=== PATIENT | male | born 1955 | race Caucasian/White ===

== ENCOUNTER 2022-12-30 17:19 | Inpatient (IN) | payer OTHER ==
[~2022-12-30] VITALS: Ht 160 cm; Wt 65.8 kg
[~2022-12-30 17:19] MED LIST: ASPI81EC PO; POTCHL20ER PO
[2022-12-30 18:06] LABS: BASOPHILS ABSOLUTE AUTO 0.02 K/mm3 (0.00-0.23); BASOPHILS PERCENT AUTO 0 % (0-2); EOSINOPHILS ABSOLUTE AUTO 0.05 K/mm3 (0.00-0.68); EOSINOPHILS PERCENT AUTO 1 % (0-6); Hematocrit 46.9 % (37.0-53.0); Hemoglobin 15.2 g/dL (13.5-17.5); IMMATURE GRAN ABSOLUTE AUTO 0.01 K/mm3 (0.00-0.10); IMMATURE GRAN PERCENT AUTO 0 % (0-1); LYMPHOCYTES ABSOLUTE AUTO 1.76 K/mm3 (0.84-5.20); LYMPHOCYTES PERCENT AUTO 27 % (21-46); MONOCYTES ABSOLUTE AUTO 0.74 K/mm3 (0.16-1.47); MONOCYTES PERCENT AUTO 11 % (4-13); Mean Corpuscular HGB 31.2 pg (26.0-34.0); Mean Corpuscular HGB Conc 32.4 g/dL (31.5-36.5); Mean Corpuscular Volume 96 fL (80-100); Mean Platelet Volume 11.6 fL (9.1-12.4); NEUTROPHILS ABSOLUTE AUTO 4.03 K/mm3 (1.96-9.15); NEUTROPHILS PERCENT AUTO 61 % (41-73); Platelet Count 139 K/mm3 (150-400); RDW Coefficient Variation 15.9 % (11.7-14.2); RDW Standard Deviation 56.6 fL (35.1-46.3); Red Blood Cell Count 4.87 M/mm3 (4.30-5.90); White Blood Cell Count 6.61 K/mm3 (4.00-11.30)
[2022-12-30 18:42] LABS: Albumin, Blood 3.2 g/dL (3.4-5.0); Albumin/Globulin Ratio 0.9 (0.8-1.8); Bilirubin, Direct 0.4 mg/dL (0.0-0.3); Bilirubin, Indirect 0.6 mg/dL (0.1-0.7); Bun/Creatinine Ratio 39.8 (12.0-20.0); Calcium, Blood 8.9 mg/dL (8.5-10.1); Creatinine, Blood 0.75 mg/dL (0.60-1.20); Globulin, Blood 3.4 g/dL (2.2-4.0); Potassium, Blood 3.8 mmol/L (3.5-5.5); Total Protein, Blood 6.6 g/dL (6.4-8.2)
[2022-12-30 19:54] LABS: International Normalized Ratio 1.18; Prothrombin Time Results 12.3 Sec (9.7-11.5)
[2022-12-30 22:49] LABS: Source, Urine Clean Catch
[2022-12-30 23:00] LABS: Appearance, Urine Clear (Clear); Bilirubin, Urine Neg (Neg); Blood, Urine Neg (Neg); Glucose Qualitative, Urine Neg (Neg); Ketones, Urine Neg (Neg); Leukocyte Esterase, Urine Neg (Neg); Nitrite, Urine Neg (Neg); Protein, Urine Neg (Neg); Specific Gravity, Urine 1.015 (1.003-1.022); Urobilinogen, Urine NORM (Normal)
[2022-12-30 23:06] LABS: Color, Urine Pale Yellow (P-Yellow)
[2022-12-30] MEDS ORDERED: Deltasone 10 mg10 MG PO (23:10)
[2022-12-30] MEDS ORDERED: Ventolin/Prove6.7 GM INH (23:10)
[2022-12-31] VITALS (19 sets, daily range): BP systolic 88–152; BP diastolic 69–109
--- NOTE | 2022-12-31 03:45 | NUR ---
BLOOD NOTED IN MINER CATHETER TUBING. DR. JUNIOR WAS IN ROOM AND MADE AWARE. ALSO TOLD DR. BARROS PATIENT REPORTS PAIN AND LEAKING AROUND MINER SITE, PRESSURE RELATED. VERBAL ORDERS GIVEN FLOMAX 0.4 MG DAILY AND TOLD TO MONITOR BLEEDING FOR NOW. MAY START BLADDER IRRIGATION LATER THIS MORNING IF BLOOD PERSISTS. WILL COLLECT URINALYSIS IF NOT COLLECTED POST MINER PLACEMENT IN ED.
[2022-12-31 04:39] LABS: BASOPHILS ABSOLUTE AUTO 0.04 K/mm3 (0.00-0.23); BASOPHILS PERCENT AUTO 1 % (0-2); EOSINOPHILS ABSOLUTE AUTO 0.05 K/mm3 (0.00-0.68); EOSINOPHILS PERCENT AUTO 1 % (0-6); Hematocrit 47.1 % (37.0-53.0); Hemoglobin 15.2 g/dL (13.5-17.5); IMMATURE GRAN ABSOLUTE AUTO 0.01 K/mm3 (0.00-0.10); IMMATURE GRAN PERCENT AUTO 0 % (0-1); LYMPHOCYTES PERCENT AUTO 30 % (21-46); MONOCYTES ABSOLUTE AUTO 0.62 K/mm3 (0.16-1.47); MONOCYTES PERCENT AUTO 10 % (4-13); Mean Corpuscular HGB 30.7 pg (26.0-34.0); Mean Corpuscular HGB Conc 32.3 g/dL (31.5-36.5); Mean Corpuscular Volume 95 fL (80-100); NEUTROPHILS ABSOLUTE AUTO 3.52 K/mm3 (1.96-9.15); NEUTROPHILS PERCENT AUTO 58 % (41-73); Platelet Count 143 K/mm3 (150-400); RDW Coefficient Variation 15.9 % (11.7-14.2); RDW Standard Deviation 55.8 fL (35.1-46.3); Red Blood Cell Count 4.95 M/mm3 (4.30-5.90); White Blood Cell Count 6.04 K/mm3 (4.00-11.30)
[2022-12-31 05:30] LABS: Albumin, Blood 2.9 g/dL (3.4-5.0); Albumin/Globulin Ratio 0.8 (0.8-1.8); Bilirubin, Total 1.2 mg/dL (0.1-1.0); Bun/Creatinine Ratio 41.3 (12.0-20.0); Calcium, Blood 8.3 mg/dL (8.5-10.1); Creatinine, Blood 0.61 mg/dL (0.60-1.20); Globulin, Blood 3.5 g/dL (2.2-4.0); Potassium, Blood 3.8 mmol/L (3.5-5.5); Total Protein, Blood 6.4 g/dL (6.4-8.2)
--- NOTE | 2022-12-31 07:48 | NUR ---
SHIFT SUMMARY ADMITTED FROM ED. A/OX4. [place], USUALLY REQUIRES HEAERING AIDS BUT LOST ONE, WEARS NONE. GLASSES AT BEDSIDE. SLIGHT JAUNDICE, ABDOMINAL SWELLING, BILATERAL LE EDEMA. TACHYCARDIC, AUDIBLE EXPIRATORY WHEEZE WITHOUT AUSCULTATION. PENDING AN ECHO, PARACENTESIS, THORACENTESIS TODAY. MINER PLACED IN ED, WAS LEAKING AROUND PENIS WITH SOME PAIN. FLUSHES WELL. BALLOON INTACT, ADDED AN EXTRA 2ML TO THE 10 ML IN BALLOON. PATIENT STATES HE HAS LOST A MINER IN THE PAST, MAY NEED TO INCREASE ICELANDIC TUBE. BLOOD NOTED IN TUBING AND HAS INCREASED, PASSED ON TO DAY SHIFT REPORT THAT DR. HICKEY HAD BEEN BY AND TOLD TO MONITOR FOR INCREASED BLEEDING WITH POSSIBLE BLADDER IRRIGATION INITIATION. CURRENT EVERY DAY SMOKER, PATIENT REFUSED NICOTINE PATCH WHEN OFFERED. ABLE TO MAKE NEEDS KNOWN. 1 PERSON [facility] TO BATHROOM. BED LOCKED IN LOW POSITION.
[2022-12-31 13:59] LABS: Albumin, Body Fluid 0.7 g/dL
[2022-12-31 14:06] LABS: Automated BF WBC Count 0.237 K/mm3 (0-999)
--- NOTE | 2022-12-31 14:10 | NUR ---
PARACENTESIS CANCELLED- PT HAD PARA AND THORACENTESIS ORDERED, GIVEN THE RESULT OF HIS ECHOCARDIOGRAM PARACENTESIS WAS CANCELLED AND CT CHEST WAS ORDERED. PT WENT FOR THORACENTESIS AND HAD 1L REMOVED FROM THE CHEST. AUDIBLE WHEEZE IS MUCH LESS AUDIBLE AT THIS TIME. SPECIMEN SENT TO THE LAB FOR CYTOLOGY. CARDIOLOGY WAS CONSULTED. PT HAS MADE A STATEMENT THAT HE IS NOT WILLING TO GO THROUGH THE SAME VALVE REPLACEMENT SURGERY HE HAD 12 YEARS AGO. UNCERTAIN WHAT THE PLAN IS MOVING FORWARD. FAMILY REQUESTED PALLIATIVE CARE CONSULT FOR THE PURPOSE OF ADVANCED DIRECTIVE AT THIS TIME. PALLIATIVE CARE UNAVAILABLE TODAY D/T LALIT. WILL PLACE CONSULT
[2022-12-31 14:12] LABS: Lactate Dehydrogenase, Body Fl 85 U/L
[2022-12-31 14:13] LABS: Protein, Body Fluid 1.2 g/dL
[2022-12-31 14:14] LABS: Body Fluid WBC Count 237 /mm3 (0-999)
[2022-12-31 14:24] LABS: Appearance, Body Fluid Clear (Clear); Color, Body Fluid Yellow (None-Yellow); RBC Count, Body Fluid 365 /mm3 (0-0); pH, Body Fluid 8.6
[2022-12-31 15:03] LABS: Total Cell Count, Body Fluid 100
--- NOTE | 2022-12-31 15:17 | NUR ---
CALLED DR PLAZA- PT IS IN BED VISITING WITH THE WALLPAPER HANGER AND SEVERAL TIMES WAS IN NOTABLE PAIN. PT STATES THE PAIN IS IN THE CATHETER SITE. BLADDER SCAN ATTEMPTED BUT UNABLE TO DETERMINE WITH CERTANITY IF THERE IS URINE BEING RETAINED IN THE BLADDER, D/T ASCITES. CALLED DR PLAZA, D/T PT CURRENT ACUTE ISSUES URINARY WORKUP WILL NOT BE PERSUED. RECIEVED ORDER FOR PO PYRIDIUM, FOR URINARY PAIN RELIEF Q6 PRN. PHARMACY CHANGED DOSE FREQUENCY TO Q12 D/T PT RENAL FUNCTION.
--- NOTE | 2022-12-31 18:30 | NUR ---
NO PARAMETERS FOR IV LASIX- SPOKE TO CARDIOLOGY ABOUT BP PARAMETERS FOR THE PT TO RECIEVE IV LASIX. HE STATED HE WANTS THE MED TO BE GIVEN. BP 113/97 PRIOR TO LASIX, DR MARTINEZ AWARE OK TO GIVE 80MG IV LASIX. FOLLOW UP BP 101/86.
--- NOTE | 2022-12-31 19:40 | NUR ---
SHIFT SUMMARY- PT ALERT AND ORIENTED, BUT VERY [place]. PT OFTEN ONLY GETS HALF OF THE INFORMATION HE RECIEVES VERBALLY, SO HE APPEARS TO NOT UNDERSTAND. PT AND FAMILY HAVE HAD A LOT OF INPUT TODAY. 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 CARDIOLOGY CAME TO SEE THE PT AND IS GOING TO TAKE THE PT IN FOR CARDIAC CATH TOMORROW. PT TO BE NPO AT 0100. IV LASIX STARTED. MINER IN PLACE PATENT AND DRAINING YELLOW URINE. URINE WAS BLOODY EARLIER, AFTER THE IV LASIX THE PT HAD 1000ML OF URINE OUT WITH SOME SMALL CLOTS IN IT. PT FAMILY REQUESTED ASSISTANCE WITH ADVANCED DIRECTIVE, PALIATIVE CARE CONSULT PLACED FOR THAT PURPOSE. CT CHEST WAS COMPLETED, THORACENTESIS WAS COMPLETED 1L REMOVED. PT IN BED, CALL LIGHT IN REACH, BP STABLE POST IV LASIX.
--- NOTE | 2022-12-31 21:12 | NUR ---
REPORT FROM MARLON GARCIA, PATIENT TRANSFERRED FROM ROOM 305, TO ICU 5 AT 2034. WALKED FROM WC TO BED. PATIENT IS ALERT AND ORIENTED X4. 02 SATS 94% ON 2L VIA NC, DENIES SOB AT THIS TIME. HR ST 110-120s, BP STABLE, DENIES CP/PRESSURE. ABD DISTENDED, PT HAS ASCITES. MINER IN PLACE APPEARS TO BE LEAKING, WILL CHANGE OUT IF NEEDED. URINE ORANGE WITH SMALL BLOOD CLOTS. PATIENT UPDATED HIS DUAGHTER OF HIS TRANSFER TO ICU. CALL LIGHT IN REACH.
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
[2023-01-01] VITALS (46 sets, daily range): BP systolic 71–141; BP diastolic 53–119
[2023-01-01 03:21] LABS: BASOPHILS ABSOLUTE AUTO 0.02 K/mm3 (0.00-0.23); BASOPHILS PERCENT AUTO 0 % (0-2); EOSINOPHILS ABSOLUTE AUTO 0.05 K/mm3 (0.00-0.68); EOSINOPHILS PERCENT AUTO 1 % (0-6); Hematocrit 45.6 % (37.0-53.0); Hemoglobin 15.1 g/dL (13.5-17.5); IMMATURE GRAN ABSOLUTE AUTO 0.02 K/mm3 (0.00-0.10); IMMATURE GRAN PERCENT AUTO 0 % (0-1); LYMPHOCYTES ABSOLUTE AUTO 1.69 K/mm3 (0.84-5.20); LYMPHOCYTES PERCENT AUTO 23 % (21-46); MONOCYTES ABSOLUTE AUTO 0.81 K/mm3 (0.16-1.47); MONOCYTES PERCENT AUTO 11 % (4-13); Mean Corpuscular HGB 31.5 pg (26.0-34.0); Mean Corpuscular HGB Conc 33.1 g/dL (31.5-36.5); Mean Corpuscular Volume 95 fL (80-100); Mean Platelet Volume 11.9 fL (9.1-12.4); NEUTROPHILS ABSOLUTE AUTO 4.84 K/mm3 (1.96-9.15); NEUTROPHILS PERCENT AUTO 65 % (41-73); Platelet Count 153 K/mm3 (150-400); RDW Coefficient Variation 15.8 % (11.7-14.2); RDW Standard Deviation 55.2 fL (35.1-46.3); White Blood Cell Count 7.43 K/mm3 (4.00-11.30)
[2023-01-01 03:43] LABS: Albumin/Globulin Ratio 0.8 (0.8-1.8); Bilirubin, Total 1.1 mg/dL (0.1-1.0); Bun/Creatinine Ratio 32.8 (12.0-20.0); Calcium, Blood 8.7 mg/dL (8.5-10.1); Creatinine, Blood 0.7 mg/dL (0.60-1.20); Globulin, Blood 3.6 g/dL (2.2-4.0); Potassium, Blood 3.9 mmol/L (3.5-5.5); Total Protein, Blood 6.6 g/dL (6.4-8.2)
--- NOTE | 2023-01-01 05:34 | NUR ---
SHIFT SUMMARY PATIENT REMAINS ALERT AND ORIENTED X4. PATIENT HAVING APNIEC PERIODS THROUGH THE NIGHT, 5L NC 02 SATS 95%, LS COARSE. HR ST 115, BP STABLE. DENIES CP/PRESSURE. ABD FIRM AND DISTENDED. MINER PATENT AND DRAINING TO GRAVITY, URINE IS ORANGE WITH SMALL AMOUNT OF BLOOD CLOTS. PATIENT DENIES PAIN. SLEPT MOST THE NIGHT. CALL LIGHT IN REACH.
--- NOTE | 2023-01-01 06:26 | NUR ---
TRANSFER NOTE THIS RN RECEIVED REPORT FROM DAT GARCIA IN THE ICU. PT TRANSFERRED TO PCU 11 AT 0615. PT AMBULATED TP PCU BED VIA 1P SBA ASSIST. BP STABLE. AFLUTTER WITH HR [address] GANG SUPERVISOR RITA. ON 5L VIA NC WITH SPO2 >90%. PT HAS BEEN NPO FOR ANGIO THIS AM. A&O X4. ABLE TO MAKE NEEDS KNOWN. BED IN LOWEST POSITION AND CALL LIGHT WITHIN REACH. THIS RN WILL REPORT TO AKIRA BOYKIN RN.
--- NOTE | 2023-01-01 09:08 | NUR ---
PT LEFT PCU FOR ANGIO AT 0800. PT A/OX4 AT THIOS TIME AND ON 2 L NC. PT TRANSFERED VIA HOSPITAL BED. NS RUNNING PER WANDA, FLUIDS STOPPED BY CURBER RN AT TIME OF TRANSFER, FLUIDS TRANSFERED WITH PT. PT CALLED DAUGHTER JUST BEFORE LEAVING FOR PROCEDURE FOR UPDATE.
--- NOTE | 2023-01-01 10:44 | NUR ---
PT ARRIVED FROM BOY'S ADVISER AT 1000 VIA HOSPITAL BED. PT ON 2L. RIGHT RADIAL SITE C/D/I AND WITHIOUT TENDERNESS OR HEMATOMA. PT INSTRUCTED NOT TO BEND RIGHT WRIST AND UPDATED ON THE FREQUENT VITALS AND ASSESSMENTS POST PROCEDURE. FAMILY PRESENT AT THIS TIME.
[2023-01-01 11:04] LABS: CHOL/HDL RATIO 5.5; Cholesterol 159 mg/dL (50-200); HDL Cholesterol 29 mg/dL (>39); Low Density Lipoprotein Chol 117 mg/dL (0-110); Triglycerides 63 mg/dL (30-160); Very Low Density Lipoprot Chol 12 mg/dL (6-32)
--- NOTE | 2023-01-01 11:18 | NUR ---
RIGHT RADIAL SITE C/D/I AND NO TNEDERENESS OR HEMATOMA NOTED. PT RESTING AT THIS TIME.
--- NOTE | 2023-01-01 11:52 | NUR ---
pt currenlty resting. right radial site c/d/i and no hematoma noted.
--- NOTE | 2023-01-01 13:33 | NUR ---
UPDATE AROUND 1300, PT BP NOTED TO BE GETTING SOFT. SEE CHARTS FOR VSS. PT RESTING AND ASYMPTOMATIC. SBP REACHED DOWN TO 77. MD NOTIFIED 1316 OF BP TREND. MD ORDERED THIS RN TO HOLD UPCOMING LASIX AND TO CONTINUE TO MONITOR BP. THIS RN INSTRUCTED TO NOTIFY MD AGAIN IF BP CONTINUE TO DECREASE.
--- NOTE | 2023-01-01 14:36 | NUR ---
TR BAND 2ML RELEASED AT 1225, 1230, 1300, AND 3ML AT 1400 TO FULLY RELEASE ML'S. SITE C/D/I.
--- NOTE | 2023-01-01 16:57 | NUR ---
SHIFT SUMMARY PT A/OX 3-4. PT ABLE TO EXPRESS NEEDS AND CALLS APPROPIATE. PT BP'S SOFT SINCE ARRIVING FROM ANGIOMD AND CLIPPING MARKER AWARE. OTHER VSS THROUGHOUT SHIFT WITH SATS IN THE 90'S ON 2L NC. NO REPORT OF CHEST PAIN/PRESSURE THROUGHOUT SHIFT. PT HAD ANGIO TODAY, NO INTERVENTION. RIGHT RADIAL SITE C/D/I. PT HAS MINER DRAINING TO GRAVITY. LASIX FREQUENCY CHANGE FROM BID TO DAILY PER CLIPPING MARKER. PT DAUGHTERS AT BESIDE DURING SHIFT AND UPDATED BY THIS RN.
--- NOTE | 2023-01-01 20:30 | NUR ---
ASSUMED PT CARE FROM RN ON DAYSHI. A&OX4, [place]. DENIES ANY CHEST PAIN/PRESSURE AT THIS TIME. BP'S SOFT WITH MAP LOW 60, INCREASES WHEN BP CUFF REPOSITION, MAP NOW IN 80'S, WILL MONITOR. DENIES DIZZIENESS, LIGHTHEADEDNESS. REPORTS BASLINE SOB. O2 SATS > 90% ON [address]PM[address] HR [address] IN LOW 100'S. ACCESS SITES ON RIGHT WRIST AND R ELBOW C/D/I. NO LEAKING, SWELLING, OR FIRMNESS NOTED. PT REMINDED OF PRECAUTIONS, STATES UNDERSANDING. MINER CATHETER IN PLACE, DRAINING TO GRAVITY WITHOUT DIFFICULTY. CALL LIGHT IN REACH. IN BED LOW POSITION.
[2023-01-02] VITALS (17 sets, daily range): BP systolic 92–123; BP diastolic 58–101
[2023-01-02 04:15] LABS: BASOPHILS ABSOLUTE AUTO 0.02 K/mm3 (0.00-0.23); BASOPHILS PERCENT AUTO 0 % (0-2); EOSINOPHILS ABSOLUTE AUTO 0.09 K/mm3 (0.00-0.68); EOSINOPHILS PERCENT AUTO 1 % (0-6); Hematocrit 42.9 % (37.0-53.0); IMMATURE GRAN ABSOLUTE AUTO 0.01 K/mm3 (0.00-0.10); IMMATURE GRAN PERCENT AUTO 0 % (0-1); LYMPHOCYTES ABSOLUTE AUTO 1.33 K/mm3 (0.84-5.20); LYMPHOCYTES PERCENT AUTO 20 % (21-46); MONOCYTES PERCENT AUTO 11 % (4-13); Mean Corpuscular HGB 31.3 pg (26.0-34.0); Mean Corpuscular HGB Conc 32.6 g/dL (31.5-36.5); Mean Corpuscular Volume 96 fL (80-100); Mean Platelet Volume 11.8 fL (9.1-12.4); NEUTROPHILS ABSOLUTE AUTO 4.45 K/mm3 (1.96-9.15); NEUTROPHILS PERCENT AUTO 67 % (41-73); Platelet Count 133 K/mm3 (150-400); RDW Coefficient Variation 15.9 % (11.7-14.2); RDW Standard Deviation 55.8 fL (35.1-46.3); Red Blood Cell Count 4.47 M/mm3 (4.30-5.90)
[2023-01-02 04:48] LABS: Bun/Creatinine Ratio 42.3 (12.0-20.0); Calcium, Blood 8.4 mg/dL (8.5-10.1); Creatinine, Blood 0.64 mg/dL (0.60-1.20); Magnesium, Blood 2.1 mg/dL (1.6-2.4)
--- NOTE | 2023-01-02 05:19 | NUR ---
SHIFT SUMMARY: NC FALLING OUT OF NOSE WHILE SLEEPING, DESATURATING INTO MID 80'S. NEBULIZER TREATMENT GIVEN X 1 DUE TO SATS NOT INCREASING WHEN REPLACED BACK ON O2. NOW SATTING LOW 90'S. WHEEZING HEARD THROUGHOUT LUNG CASTRO. CONTINUES TO REPORT BASELINE SOB. MINER CATHETER DRAINING TO GRAVITY, URINE ORAGNE WITH SCAN SEDIMENT. BP'S IMPROVING THROUGHOUT SHIFT. EVENING DOSE OF METROLOL MARY JO PER PERAMETERS, SEE EMAR. CALL LIGHT IN REACH. BED ALARM ON.
[2023-01-02] MEDS ORDERED: ATOR80 PO (11:15)
[2023-01-02] MEDS ORDERED: ELIQUIS5 M2 PO (11:15)
[2023-01-02] MEDS ORDERED: FURO40 PO (11:16)
[2023-01-02] MEDS ORDERED: METO50 PO (11:16)
[2023-01-02] MEDS ORDERED: NICO21TP TOP (11:16)
[2023-01-02] MEDS ORDERED: POTCHL20ER PO (11:17)
[2023-01-02] MEDS ORDERED: TAMS.4ER PO (11:27)
--- NOTE | 2023-01-02 13:17 | NUR ---
DISCHARGE UPDATE DISCHARGE PACKET GONE OVER WITH PT AND PT DAUGHTER AT 1250. PT DISCHARGED AT 1314 VIA WHEELCHAIR AND ON RA. DISCHARGE PACKET WITH DAUGHTER AT TIME OF DISCHARGE. SUPPLY TECH SUPPLIED PT WITH 30 SUPPLY OF ELLIQUIS CARD, CARD WITH PT DAUGHTER AT TIME OF DISCHARGE. PT ABLE TO TRANSFER SELF TO AND FROM WHEELCHAIR ON HIS OWN, TOLERATED WELL. PT PERSONAL BELONGINGS IN BAG AND WITH PT DAUGHTER AT TIME OF DISCHARGE.
--- NOTE | 2023-01-02 13:21 | NUR ---
5988 THIS RN CONTACTED [facility] TO GET PRICING OF ELIQUIS AND EQUIVALENT MEDS. MD NOTIFIED OF PRICING. MD INSTRUCTED THIS RN TO CONTINUE WITH DISCHARGE AND TO SEE IF THERE WAS ASSISTANCE FROM STRATIGRAPHER. STRATIGRAPHER CONTACTED BY SECURITY INVESTIGATOR. ELIQUIS 30 SUPPLY CARD PROVIDED TO COVER PHARMACY COST AND PROVIDED TO PT DAUGHTER.
== END 2023-01-02 13:18 | disposition home or self-care (01) | DRG 286 ==
LOC: ER 17:19 → PCU 17:20 → MEDS 17:20 → ER 17:20 → ICUE 17:20 → MEDS 17:20 → ICUE 17:20 → PCU 17:20 → MEDS 23:56 → ICUE 12-31 15:38 → MEDS 12-31 15:38 → ICUE 12-31 20:35 → MEDS 12-31 20:35 → ICUE 12-31 20:35 → PCU 01-01 06:12
PROVIDERS: Internal Medicine; Internal Medicine Cardiovascular Disease; Physician Assistant; Student in an Organized Health Care Education/Training Program; ADMIT Internal Medicine
PROC: 0W993ZZ Drainage of Right Pleural Cavity, Percutaneous Approach (ICD-10-PCS; 2022-12-31)
PROC: 4A023N8 Measurement of Cardiac Sampling and Pressure, Bilateral, Percutaneous Approach (ICD-10-PCS; principal; 2023-01-01)
PROC: B2111ZZ Fluoroscopy of Multiple Coronary Arteries using Low Osmolar Contrast (ICD-10-PCS; 2023-01-01)
PROC: 02HP32Z Insertion of Monitoring Device into Pulmonary Trunk, Percutaneous Approach (ICD-10-PCS; 2023-01-01)
PROC: 4A133B3 Monitoring of Arterial Pressure, Pulmonary, Percutaneous Approach (ICD-10-PCS; 2023-01-01)
PROC: 4A1239Z Monitoring of Cardiac Output, Percutaneous Approach (ICD-10-PCS; 2023-01-01)
DX: I50.812 Chronic right heart failure (principal); E43 Unspecified severe protein-calorie malnutrition; J96.01 Acute respiratory failure with hypoxia; I48.92 Unspecified atrial flutter; T82.857A Stenosis of other cardiac prosthetic devices, implants and grafts, initial encounter; J90 Pleural effusion, not elsewhere classified; I08.1 Rheumatic disorders of both mitral and tricuspid valves; K70.31 Alcoholic cirrhosis of liver with ascites; F10.21 Alcohol dependence, in remission; J44.9 Chronic obstructive pulmonary disease, unspecified; I25.10 Atherosclerotic heart disease of native coronary artery without angina pectoris; R33.9 Retention of urine, unspecified; I27.20 Pulmonary hypertension, unspecified; F17.210 Nicotine dependence, cigarettes, uncomplicated; Z68.25 Body mass index [BMI] 25.0-25.9, adult; Z88.2 Allergy status to sulfonamides
CPT/HCPCS: 32555; 36415; 51702; 51798; 71045; 71046; 71260; 74160; 76937; 80048; 80053; 80061; 80076; 81003; 82042; 82140; 83615; 83735; 83880; 83986; 84157; 84484; 85025; 85610; 87070; 87075; 87205; 88108; 88305; 88341; 88342; 89051; 93005; 93010; 93306; 93460; 94640; 94664; 94760; 94762; 96374-59; 96375; 99152; 99153; 99285-25; A9270; C1769; C1887; C1894; G0378; J0360; J1644; J1940; J2250; J3010; J7030; J7040; J7050; Q9967

== ENCOUNTER 2023-02-23 16:05 | Emergency (ER) | payer OTHER ==
[~2023-02-23] VITALS: Ht 165.1 cm; Wt 65.8 kg
[~2023-02-23 16:05] MED LIST changes: +ATOR80 PO; +Deltasone 10 mg10 MG PO; +ELIQUIS5 M2 PO; +FURO40 PO; +METO50 PO; +NICO21TP TOP; +TAMS.4ER PO; +Ventolin/Prove6.7 GM INH
[2023-02-23 16:54] LABS: BASOPHILS ABSOLUTE AUTO 0.03 K/mm3 (0.00-0.23); BASOPHILS PERCENT AUTO 0 % (0-2); EOSINOPHILS ABSOLUTE AUTO 0.07 K/mm3 (0.00-0.68); EOSINOPHILS PERCENT AUTO 1 % (0-6); Hematocrit 43.7 % (37.0-53.0); Hemoglobin 13.8 g/dL (13.5-17.5); IMMATURE GRAN ABSOLUTE AUTO 0.03 K/mm3 (0.00-0.10); IMMATURE GRAN PERCENT AUTO 0 % (0-1); LYMPHOCYTES ABSOLUTE AUTO 1.51 K/mm3 (0.84-5.20); LYMPHOCYTES PERCENT AUTO 22 % (21-46); MONOCYTES ABSOLUTE AUTO 0.94 K/mm3 (0.16-1.47); MONOCYTES PERCENT AUTO 14 % (4-13); Mean Corpuscular HGB 29.8 pg (26.0-34.0); Mean Corpuscular HGB Conc 31.6 g/dL (31.5-36.5); Mean Corpuscular Volume 94 fL (80-100); Mean Platelet Volume 10.8 fL (9.1-12.4); NEUTROPHILS PERCENT AUTO 63 % (41-73); Platelet Count 191 K/mm3 (150-400); RDW Coefficient Variation 16.5 % (11.7-14.2); RDW Standard Deviation 57.7 fL (35.1-46.3); Red Blood Cell Count 4.63 M/mm3 (4.30-5.90); White Blood Cell Count 6.88 K/mm3 (4.00-11.30)
[2023-02-23 17:09] LABS: International Normalized Ratio 1.16; Prothrombin Time Results 12.1 Sec (9.7-11.5)
[2023-02-23 17:41] LABS: Albumin/Globulin Ratio 0.8 (0.8-1.8); Bilirubin, Total 0.5 mg/dL (0.1-1.0); Bun/Creatinine Ratio 49.4 (12.0-20.0); Creatinine, Blood 0.59 mg/dL (0.60-1.20); Potassium, Blood 4.1 mmol/L (3.5-5.5)
[2023-02-23 22:34] VITALS: BP 132/99
== END 2023-02-23 22:34 | disposition home or self-care (01) ==
LOC: ER 16:05
PROVIDERS: Physician Assistant
DX: I50.9 Heart failure, unspecified (principal); K70.31 Alcoholic cirrhosis of liver with ascites; I48.91 Unspecified atrial fibrillation; I48.92 Unspecified atrial flutter; R06.00 Dyspnea, unspecified; F17.210 Nicotine dependence, cigarettes, uncomplicated; Z79.01 Long term (current) use of anticoagulants; Z79.899 Other long term (current) drug therapy; Z88.2 Allergy status to sulfonamides; Z95.2 Presence of prosthetic heart valve; Z91.148 Patient's other noncompliance with medication regimen for other reason
CPT/HCPCS: 71046; 80053; 83880; 84484; 85025; 85610; 93005; 93010; 99285-25

== ENCOUNTER 2023-03-05 12:15 | Inpatient (IN) | payer OTHER ==
[~2023-03-05] VITALS: Ht 172.7 cm; Wt 61.7 kg
[2023-03-05 12:50] LABS: BASOPHILS ABSOLUTE AUTO 0.04 K/mm3 (0.00-0.23); BASOPHILS PERCENT AUTO 1 % (0-2); EOSINOPHILS ABSOLUTE AUTO 0.08 K/mm3 (0.00-0.68); EOSINOPHILS PERCENT AUTO 1 % (0-6); Hematocrit 46.7 % (37.0-53.0); Hemoglobin 14.7 g/dL (13.5-17.5); IMMATURE GRAN ABSOLUTE AUTO 0.01 K/mm3 (0.00-0.10); IMMATURE GRAN PERCENT AUTO 0 % (0-1); LYMPHOCYTES ABSOLUTE AUTO 1.52 K/mm3 (0.84-5.20); LYMPHOCYTES PERCENT AUTO 23 % (21-46); MONOCYTES ABSOLUTE AUTO 0.83 K/mm3 (0.16-1.47); MONOCYTES PERCENT AUTO 13 % (4-13); Mean Corpuscular HGB 29.9 pg (26.0-34.0); Mean Corpuscular HGB Conc 31.5 g/dL (31.5-36.5); Mean Corpuscular Volume 95 fL (80-100); Mean Platelet Volume 10.5 fL (9.1-12.4); NEUTROPHILS ABSOLUTE AUTO 4.11 K/mm3 (1.96-9.15); NEUTROPHILS PERCENT AUTO 62 % (41-73); Platelet Count 190 K/mm3 (150-400); RDW Standard Deviation 58.7 fL (35.1-46.3); Red Blood Cell Count 4.92 M/mm3 (4.30-5.90); White Blood Cell Count 6.59 K/mm3 (4.00-11.30)
[2023-03-05 13:06] LABS: International Normalized Ratio 1.25
[2023-03-05 13:19] LABS: Albumin/Globulin Ratio 0.7 (0.8-1.8); Bilirubin, Total 0.8 mg/dL (0.1-1.0); Bun/Creatinine Ratio 44.1 (12.0-20.0); Calcium, Blood 8.7 mg/dL (8.5-10.1); Creatinine, Blood 0.61 mg/dL (0.60-1.20); Globulin, Blood 4.1 g/dL (2.2-4.0); Potassium, Blood 4.1 mmol/L (3.5-5.5); Total Protein, Blood 7.1 g/dL (6.4-8.2)
[2023-03-05] MEDS ORDERED: Albuterol 2.5 MG/3 ML VIAL INH ONE (16:00)
[2023-03-05] MEDS ORDERED: Nicotine 21 MG PATCH TOP ONE (16:00)
[2023-03-05] MEDS ORDERED: Albumin Human 50 ML IV ONE (17:20)
[2023-03-05] MEDS ORDERED: Magnesium Hydroxide Conc 10 ML UDC PO PRN (18:35)
[2023-03-05] MEDS ORDERED: FLU VACC QS2023-24(6MOS UP)/PF 60 MCG/0.5 ML SYRINGE IM SCH (18:35)
[2023-03-05] MEDS ORDERED: Albuterol HFA200 ACT/6.7 GM INH INH PRN (18:40)
[2023-03-05] MEDS ORDERED: PredniSONE 20 MG Tab PO SCH (19:00)
[2023-03-05 20:05] VITALS: BP 96/77
[2023-03-05] MEDS ORDERED: Metoprolol Tartrate 25 MG Tab PO SCH (21:00)
[2023-03-05] MEDS ORDERED: Apixaban 5 MG Tab PO SCH (21:00)
--- NOTE | 2023-03-05 22:16 | NUR ---
Pt refuses O2 Pt O2 saturation is 87-90%, he is refusing O2 at this time because he states the mask or NC smells and causes him nausea. Education provided.
[2023-03-06] VITALS (7 sets, daily range): BP systolic 95–122; BP diastolic 70–90
--- NOTE | 2023-03-06 06:10 | NUR ---
Shift Summary Pt arrived from the ED with dx of COPD. He had 6L of fluid removed from his abdomen in the ED via thoracentesis. He is a current everyday smoker, his lung sounds are coarse and wheezy t/o. He rcvd RT treatment and oral steriods. He has been SoB and desaturating down to 87% but refuses to wear O2 for the most part. He is AOx4 and steady on his feet, but 1 SBA d/t SoB and weakness. He has a poor living environment, he lives in a camp trailer and reportedly uses a bucket for a toilet. He is very hard of hearing, has hearing aids at home but he does not wear them. His systolic BP was below 100 last night so I held his metropolol. Pt states he is going to sneak out with his friend tomorrow to smoke, I advised that it is not allowed anywhere on [facility] [employer]. Pt does not have any lighters or cigaretts with him at this time, he thouroughly searched his own belongings. Offered nicotine repacement which he refused.
[2023-03-06] MEDS ORDERED: Furosemide 40 MG Tab PO SCH (09:00)
[2023-03-06] MEDS ORDERED: Spironolactone 50 MG Tab PO SCH (09:00)
[2023-03-06] MEDS ORDERED: Atorvastatin 10 MG Tab PO SCH (09:00)
[2023-03-06] MEDS ORDERED: Tamsulosin HCl 0.4 MG Cap PO SCH (09:00)
[2023-03-06] MEDS ORDERED: Nicotine 21 MG PATCH TOP SCH (14:55)
--- NOTE | 2023-03-06 15:57 | NUR ---
PATIENT BECAME UPSET WITH HIS TWO DAUGHTERS WHEN THEY TOLD HIM THAT HE COULD NOT GO OUTSIDE TO SMOKE. THE PATIENT AND HIS DAUGHTERS BEGAN YELLING AND THREATENING EACHOTHER WITH HAND GESTURES SUCH CLOSED FISTS AND MIDDLE FINGERS. THE DAUGHTERS WERE ASKED TO LEAVE BY THE RN. SECURITY WAS CALLED AT THE PATIENT'S REQUEST. THE PATIENT HAS BEEN NOTIFIED BY THIS RN THAT IF HE CHOOSES TO LEAVE THE CAMPUS TO SMOKE, HE WILL BE DISCHARGED AND THAT THIS IN A NO SMOKING CAMPUS SO IF HE LEAVES THIS UNIT, SECURITY WILL BE ASKED TO FOLLOW HIM OFF THE CAMPUS. THE PATIENT HAS BEEN ENCOURAGED TO ABSTAIN FROM SMOKING AND HAS BEEN OFFERED A NICOTINE PATCH WHICH HE HAS REFUSED. THE PATIENT IS CALM AT THIS TIME AND SITTING IN HIS ROOM.
--- NOTE | 2023-03-06 16:57 | NUR ---
PATIENT IS ALERT AND ORIENTED. HE IS NOT VERY KNOWLEDGABLE ON HIS CONDITION OR MEDICATIONS. HIS TWO DAUGHTERS VISITED TODAY AND THERES A NOTE DESCRIBING HOW THAT WENT. THE PATIENT WANTS TO SMOKE. HE DOES NOT HAVE CIGARRETTES OR A TV TECHNICIAN WITH HIM, HIS DAUGHTER STATED THAT SHE HAS THEM IN HER CAR. PATIENT WAS OFFERED NICOTINE REPLACEMENT, HE REFUSED SAYING THE PATCH MAKES HIM SICK TO HIS STOMACH. THE PATIENT HAS BEEN CALM AND COOPERATIVE SINCE HIS DAUGHTERS LEFT. HE WAS APOLOGETIC TO STAFF. HE HAS WHEEZING IN ALL LUNG CASTRO. RT GAVE HIM AN INHALER PRN. ON RA. WILL CONTINUE TO MONITOR
[2023-03-06] MEDS ORDERED: Ipratropium/Albuterol SulF 2.5-0.5MG/3 ML Amp INH PRN (21:25)
[2023-03-07 02:27] VITALS: BP 112/97
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
[2023-03-07 05:38] LABS: BASOPHILS ABSOLUTE AUTO 0.01 K/mm3 (0.00-0.23); BASOPHILS PERCENT AUTO 0 % (0-2); EOSINOPHILS PERCENT AUTO 0 % (0-6); Hematocrit 44.9 % (37.0-53.0); Hemoglobin 14.7 g/dL (13.5-17.5); IMMATURE GRAN ABSOLUTE AUTO 0.05 K/mm3 (0.00-0.10); IMMATURE GRAN PERCENT AUTO 0 % (0-1); LYMPHOCYTES ABSOLUTE AUTO 1.39 K/mm3 (0.84-5.20); LYMPHOCYTES PERCENT AUTO 10 % (21-46); MONOCYTES ABSOLUTE AUTO 1.41 K/mm3 (0.16-1.47); MONOCYTES PERCENT AUTO 10 % (4-13); Mean Corpuscular HGB 30.2 pg (26.0-34.0); Mean Corpuscular HGB Conc 32.7 g/dL (31.5-36.5); Mean Corpuscular Volume 92 fL (80-100); NEUTROPHILS ABSOLUTE AUTO 11.13 K/mm3 (1.96-9.15); NEUTROPHILS PERCENT AUTO 80 % (41-73); Platelet Count 183 K/mm3 (150-400); RDW Coefficient Variation 16.4 % (11.7-14.2); RDW Standard Deviation 55.8 fL (35.1-46.3); Red Blood Cell Count 4.87 M/mm3 (4.30-5.90); White Blood Cell Count 13.99 K/mm3 (4.00-11.30)
[2023-03-07 06:28] LABS: Albumin, Blood 2.6 g/dL (3.4-5.0); Albumin/Globulin Ratio 0.8 (0.8-1.8); Bilirubin, Total 0.5 mg/dL (0.1-1.0); Bun/Creatinine Ratio 54.3 (12.0-20.0); Calcium, Blood 8.3 mg/dL (8.5-10.1); Creatinine, Blood 0.65 mg/dL (0.60-1.20); Globulin, Blood 3.3 g/dL (2.2-4.0); Potassium, Blood 4.1 mmol/L (3.5-5.5); Total Protein, Blood 5.9 g/dL (6.4-8.2)
[2023-03-07 07:13] VITALS: BP 104/90
[2023-03-07] MEDS ORDERED: Ipratropium/Albuterol SulF 2.5-0.5MG/3 ML Amp INH SCH (08:30)
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
[2023-03-07 15:35] VITALS: BP 100/76
--- NOTE | 2023-03-07 17:22 | NUR ---
SHIFT SUMMARY PT IRRITATED AND STATING HE IS GOING TO LEAVE AMA SO THAT HE CAN SMOKE. PT RELAYED TO STAFF AND DR. OMER THAT HE JUST WANTS TO "GO HOME AND " AND "SMOKE MY SIGS". PALLIATIVE CARE CONSULTED AND DISCUSSION FOR HOSPICE STARTED TODAY. SURGICAL CONSULT PLACED TO THAT PLEUREX DRAIN CAN BE PLACED PRIOR TO DC WITH HOSPICE TO HELP WITH ABD ASCITES. PT AGREEABLE TO STAYING ANOTHER NIGHT AT THIS TIME. PTS DAUGHTER, LIBERTY, AWARE OF PLAN AND AGREEABLE TO THIS PLAN PER PALLIATIVE CARE. BP SOFT. AWARE OF THIS TREND. HR REMAINS IN THE 110S. NO OTHER ACUTE CHANGES IN ASSESSMENT AT THIS TIME. CALL LIGHT IN REACH. NPO AT MIDNIGHT.
[2023-03-07 18:07] LABS: International Normalized Ratio 1.22; Prothrombin Time Results 12.7 Sec (9.7-11.5)
[2023-03-07 19:50] VITALS: BP 101/84
[2023-03-07] MEDS ORDERED: Heparin Sodium,Porcine/0.5 NS 500 ML IV SCH (20:55)
--- NOTE | 2023-03-07 21:42 | NUR ---
HEPARIN DRIP STARTED PER MD ORDERS AT 18 MG/KG = 22 ML/HR. ATER NEW IV PLACED IN RIGHT FORARM. CALL LIGHT IN REACH
[2023-03-08 03:12] VITALS: BP 108/88
[2023-03-08] MEDS ORDERED: Dose Adjust by Pharmacy XX STA (04:44)
--- NOTE | 2023-03-08 05:28 | NUR ---
SHIFT SUMMARY PT ACCIDENTALLY PULLED HIS IV OUT. NEW IV INSERTED BY MARANDA MORIN RN. HEPARIN DRIP STARTED AT 2140 18UNITS/KG/HR. TITRATED TO 20UNITS/KG/HR AT 0451 PER PHARMACY. PT SLEPT OFF AND ON THROUGH NIGHT. STAYED IN HIS ROOM THIS SHIFT. SHORTNESS OF BREATH SEVERE. NPO AT MIDNIGHT FOR PREP OF ABDOMINAL DRAINAGE TUBE INSERTION.
[2023-03-08 07:55] VITALS: BP 90/67
[2023-03-08 07:59] VITALS: BP 99/76
[2023-03-08] MEDS ORDERED: Apixaban 5 MG Tab PO SCH (11:00)
--- NOTE | 2023-03-08 14:46 | NUR ---
As per pt's wishes, we are changing plan of care to comfort. Surgical consult placed, and they declined for several reasons as documented. At this point, the pt's daughter Como remains concerned that pt is unable to live on his own due to his poor choices. Both myself and Dr. Mars have counseled daughter regarding pt's freedom of choice to live how he desires. At this time, [facility] has agreed to admit pt to hospice services on March 08.
[2023-03-08] MEDS ORDERED: Scopolamine Hydrobromide Patch TOP PRN (15:20)
[2023-03-08] MEDS ORDERED: Atropine Sulfate 1% Opth Soln 2ML BTL SL PRN (15:20)
[2023-03-08] MEDS ORDERED: LORazepam 1 MG Tab PO PRN (15:20)
[2023-03-08] MEDS ORDERED: Morphine Sulfate 20 MG/1ML 1 ML Oral Syringe SL PRN (15:20)
[2023-03-08] MEDS ORDERED: LORazepam 2 MG/ML 1ML Injection IV PRN (15:20)
[2023-03-08 15:58] VITALS: BP 118/95
[2023-03-08] MEDS ORDERED: Calcium Carbonate 500 MG Tab Chew PO PRN (16:10)
[2023-03-08] MEDS ORDERED: Omeprazole 20 MG CapCR PO ONE (17:00)
[2023-03-08] MEDS ORDERED: Omeprazole 20 MG CapCR PO PRN (17:00)
--- NOTE | 2023-03-08 17:22 | NUR ---
PT IS A/OX4, COOPERATIVE. THIS AM UPON ENTERING THE ROOM THE PT WAS VERY ANGRY THAT THE PLANNED PLEUREX DRAIN PLACEMENT HAD NOT HAPPENED YET AND THAT HE WANTED TO LEAVE NOW AND WANTED TO EAT SOMETHING. DR. BUTLER CAME TO THE ROOM AND CONSULTED WITH THE PT IT WAS DETERMINED BY HER AND THE SURGEON THAT THE DRAIN WAS CONTRAINDICATED AT THIS TIME DUE TO THE PTS POOR LIVING CONDITIONS AND AT TIMES NON COMPLIANCE. ONCE THE PT HAD SOMETHING TO EAT HE CALMED DOWN AND WAS COOPERATIVE T/O THE DAY. THE PT WAS MADE COMFORT CARE THIS AFTERNOON. THE PT WAS GIVEN ATIVAN FOR ANXIETY. THE PT WAS MEDICATED FOR ACID REFLUX. CALL LIGHT IN REACH. POSSIBLE PLAN FOR DC IN THE AM ON HOSPICE CARE
--- NOTE | 2023-03-08 17:49 | NUR ---
Pt reports morphine makes him vomit.
[2023-03-08] MEDS ORDERED: OxyCODONE HCl Soln 20 MG/ML 1 ML Oral SYR SL PRN (17:50)
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
--- NOTE | 2023-03-08 23:20 | NUR ---
C/O DIFFICULTY WITH BRATING. NOTE AUDIBLE WHEEZES. RT NOTIFIED FOR TREATMENT AND ATROPINE SL ADMIN ORDERED. RESTING IN BED. WILL CONTINUE TO MONITOR. CALL LIGHT IN REACH
--- NOTE | 2023-03-09 05:35 | NUR ---
MEDICAL RECEPTION SUMMARY REMAINS ON COMFORT CARE. INTERMITTENT COUGHING AND NOTABLE WHEEZE WITH BREATH SOUNDS. SOME ANXIETY RE BREATHING. RT AT BEDSIDE INTERMITTENTLY WITH TREATMENTS. ATROPINE SL ADMINISTERED AND WHEEZING DECREASED AND PT WAS ABLE TO REST MORE COMFORTABLY. CURRENTLY RESTING QUIETLY. CALL LIGHT IN REACH.
--- NOTE | 2023-03-09 13:01 | NUR ---
EOL, Symptom Management Pt is sitting on edge of bed with hands on his knees. Acute 08/14 SOB. Primary RN has called RT for breathing treatment. Large abdominal girth d/t ascites. Primary RNValeria gave Roxicodone SL for dyspnea with moderate relief. Dyspnea 05/15. Recommend 2 person pivot to BSC when dyspnic. If dyspnea has resolved he needs to be a minimum of standby assist to BSC. Pt's nephew, Andrew and 2 faith members from [facility] arrived to visit with pt. Phone call to Hellen whittaker re: d/c planning and goals of care.
[2023-03-09] MEDS ORDERED: Acetaminophen 650 MG Supp PR PRN (14:40)
[2023-03-09] MEDS ORDERED: Morphine Sulfate 20 MG/1ML 1 ML Oral Syringe SL PRN (14:40)
[2023-03-09] MEDS ORDERED: Promethazine HCl 25 MG Supp PR PRN (14:40)
[2023-03-09] MEDS ORDERED: Haloperidol Lactate 2 MG/ML Conc 1ML Dose PO PRN (14:40)
--- NOTE | 2023-03-09 14:48 | NUR ---
New Orders Spoke with Dr. Mars by phone. Updated with pt's current status. Pt is extremely dyspnic. Symptoms are not being managed with current treatment regiment. New comfort orders obtained and ordered accordingly. Pt reported to previous PC RN the Morphine caused nausea. Phengran suppository ordered prophylactically. Primary RN notified of updated orderes.
--- NOTE | 2023-03-09 18:17 | NUR ---
PT STARTED THE MORNING NOT WANTING TO WAKE UP FOR MEDS AND WOULD NOT GET UP. ONCE PT WOKE UP HE SOUNDED VERY TIGHT AND RASPING WITH HIS BREATHING AND WAS TREATED PER EMAR FOR COMFORT MEDS. THIS WAS NOT EFFECTIVE AND PALLITIVE CARE WAS NOTIFIED. MEDICATION WAS ADDED TO EMAR. MINER WAS ALSO PLACED BY THIS MAINTENANCE HELPER UTILITY ENGINEER. PT TOLERATED WELL. MORE MEDICATION WAS GIVEN PER EMAR AND PT IS RESTING COMFORTABLY AT THIS TIME. CALL LIGHT IS WITHIN REACH AND BED ALARM IN PLACE. WILL CONTINUE TO MONITOR.
--- NOTE | 2023-03-09 19:35 | NUR ---
Long conversation with daughter she is anxious and struggling with being present. She states he was not a good father and the children are all struggling with participating in this process. P labored and coarse in respirations. Pt told morphine makes him vomit. Gave pt a phenergran suppository, Placed a kirby he realsed about 300 of urine. Started on roxinal. Still labored second increased dose more effective for air hunger. pt transitioning. Will continue to support family.
--- NOTE | 2023-03-09 19:52 | NUR ---
VISITOR DAUGHTER, LIBERTY AT BEDSIDE.
--- NOTE | 2023-03-10 06:42 | NUR ---
SHIFT SUMMARY PT SLEPT THROUGH NIGHT WITHOUT WAKING. ATTEMPTS TO WAKE HIM UP FOR RT TREATMENT AND MEDICATION ADMINISTRATION WERE UNSUCCESSFUL. LUNGS STILL SOUNDING WET, AND HIS BREATHING IS STILL QUITE LABORED WITH WHEEZING AUDIBLE AT PT DOORWAY. DAUGHTER, RL, STAYED AT BEDSIDE THROUGH NIGHT. NO REMARKABLE CHANGES IN SITUATION. WILL CONTINUE TO MONITOR.
--- NOTE | 2023-03-10 09:03 | NUR ---
Symptom Management/Supportive Visit Primary RN, Valeria and pt's dtrHellen at bedside. Pt lying supine with arms at head level. Audible wheeze noted from doorway. Jovanny is not able to clear his own secreations. Oral care provided prior to roxanol administration. Thick white mucus removed with toothette. Scopolamine patch applied behind right ear. Gentle education provided to Hellen re: EOL symptom progression and potential outcomes. Will continue to be available as needed.
--- NOTE | 2023-03-10 11:59 | NUR ---
Spoke with Dr. Mars by phone. Rcv'd orders to change 40 mg lasix from PO to IV. D/C all PO medications as pt is not alert or safe to swallow. Notified primary RN of medication changes.
[2023-03-10] MEDS ORDERED: Furosemide 10 MG/ML 4ML Vial IV ONE (12:00)
--- NOTE | 2023-03-10 16:53 | NUR ---
pt strating to transition more. review increase in medications for his labored breathing with nursing.
--- NOTE | 2023-03-10 17:48 | NUR ---
PT HAS NOT BEE UP TODAY. PT WOKE UP A BIT THEN WENT BACK TO SLEEP. MINER IS STILL DRAINING. PT HAS BEEN REPOSITIONED Q2HRS. PT TREATED FOR COMFORT PER EMAR HIS BREATHING BECOMES VERY LABORED. PT HAS STARTED TO HAVE PAUSES WITH BREATHING. WILL CONTINUE TO MONITOR.
--- NOTE | 2023-03-11 05:38 | NUR ---
SHIFT SUMMARY - PT HAS BEEN HAVING JYOTI GRACIA RESPIRATIONS THROUGHOUT MOST OF THE NIGHT. PT MEDICATED FOR COMFORT - SEE EMAR. FAMILY PRESENT THROUGHOUT THE NIGHT. PT IS RESPONSIVE TO PAIN ONLY. ORAL CARE PROVIDED X3 TONIGHT. PT HAD ONE EPISODE OF EMESIS - SEE PREVIOUS NOTE. CALL LIGHT WITHIN REACH. BED IN LOW POSITION.
[2023-03-11] MEDS ORDERED: Furosemide 10 MG/ML 4ML Vial IV SCH (09:00)
--- NOTE | 2023-03-11 12:41 | NUR ---
SHIFT/ SUMMARY Pt unresponsive upon assignment. Daughters and son Eric at bedside. POC/EOL discussion including family involvement as wanted discussed. Scopalamine patch to right neck Meds given for secretions and increased respirations. Son Eric at bedside informing staff pt stopped breathing. Confirmed with 2 RN. TOD at 1235. Emotional support provided. Dr Mars informed.
--- NOTE | 2023-03-11 16:40 | NUR ---
Supportive Visit Met with family. Provided theraputic listening. Family (pt's children) are very conflicted with sorrow as they did not have the best relationship with pt. Family has rallied in support for pt. Will continue to be available as needed.
== END 2023-03-11 12:35 | DRG 432 ==
LOC: ER 12:15 → MEDS 18:31
PROVIDERS: Internal Medicine; Physician Assistant; ADMIT Internal Medicine
PROC: 0W9G3ZZ Drainage of Peritoneal Cavity, Percutaneous Approach (ICD-10-PCS; principal; 2023-03-05)
PROC: 30233J1 Transfusion of Nonautologous Serum Albumin into Peripheral Vein, Percutaneous Approach (ICD-10-PCS; 2023-03-05)
DX: K70.31 Alcoholic cirrhosis of liver with ascites (principal); J96.01 Acute respiratory failure with hypoxia; I48.92 Unspecified atrial flutter; J90 Pleural effusion, not elsewhere classified; I50.22 Chronic systolic (congestive) heart failure; J44.1 Chronic obstructive pulmonary disease with (acute) exacerbation; I51.9 Heart disease, unspecified; Z51.5 Encounter for palliative care; Z66 Do not resuscitate; R91.1 Solitary pulmonary nodule; I50.82 Biventricular heart failure; N40.0 Benign prostatic hyperplasia without lower urinary tract symptoms; F12.90 Cannabis use, unspecified, uncomplicated; F17.210 Nicotine dependence, cigarettes, uncomplicated; F10.20 Alcohol dependence, uncomplicated; E78.5 Hyperlipidemia, unspecified; R45.1 Restlessness and agitation; H91.90 Unspecified hearing loss, unspecified ear; G31.84 Mild cognitive impairment of uncertain or unknown etiology; E87.70 Fluid overload, unspecified; Z88.2 Allergy status to sulfonamides; Z71.6 Tobacco abuse counseling; Z79.01 Long term (current) use of anticoagulants; Z79.899 Other long term (current) drug therapy; Z95.2 Presence of prosthetic heart valve; Z60.2 Problems related to living alone; Z98.890 Other specified postprocedural states
CPT/HCPCS: 36415; 49083; 71046; 80053; 83880; 84484; 85025; 85610; 85730; 93005; 93010; 93306; 94640; 94664; 94760; 94762; 96365-59; 97129; 97165; 99285-25; A9270; J1644; J1940; J2060; J7512; P9047